=== PATIENT | female | born 1945 | race African-American/Black ===

== ENCOUNTER 2021-10-07 18:28 | Inpatient (IN) | payer OTHER, MEDICAID ==
[~2021-10-07] VITALS: Ht 167.6 cm; Wt 99.8 kg
[2021-10-07] MEDS ORDERED: methylPREDNISolone SOD SUCC 125 MG/2 ML VL IV ONE (19:45)
[2021-10-07 20:44] LABS: Albumin 3.4 g/dL (3.4-5.0); BUN/Creatinine Ratio 21.3; Calcium 8.9 mg/dL (8.5-10.1); Potassium 3.6 mmol/L (3.5-5.1)
[2021-10-07 20:50] LABS: Lactic Acid w/Reflex 2.1 mmol/L (0.4-2.0)
[2021-10-07 20:53] LABS: Bilirubin, Total 0.4 mg/dL (0.2-1.0); Total Protein 7.2 g/dL (6.4-8.2)
[2021-10-07] MEDS ORDERED: CHOLECALCIFEROL (VITD3) 2,000 UNIT CAP/TAB PO ONE (21:30)
[2021-10-07] MEDS ORDERED: AZITHROMYCIN 500MG/ 250ML 250 ML IV ONE (21:30)
[2021-10-07] MEDS ORDERED: ASCORBIC ACID 500 MG TAB PO ONE (21:30)
[2021-10-07] MEDS ORDERED: ZINC SULFATE 220mg CAP or TAB PO ONE (21:30)
[2021-10-07] MEDS ORDERED: ALBUTEROL SULF HFA 90MCG INH 200DOSE IN PRN (21:45)
[2021-10-07] MEDS ORDERED: ACETAMINOPHEN 500 MG TAB PO PRN (21:45)
[2021-10-07] MEDS ORDERED: ONDANSETRON HCL 4 MG/2 ML VIAL IV PRN (21:45)
[2021-10-07] MEDS ORDERED: HYDROcodone-ACET 5/325MG TAB PO PRN (21:45)
[2021-10-07] MEDS: SODIUM CHLORIDE 0.9% 1,000 ML IV SCH (21:45)
[2021-10-07] MEDS ORDERED: DOCUSATE SOD 100 MG CAP PO PRN (21:45)
[2021-10-07] MEDS: HEPARIN SODIUM (PORCINE) 5000 UNITS/ML 1ML VIAL SC SCH (22:00)
[2021-10-07] MEDS ORDERED: FAMOTIDINE (10MG/ML) 2ML VL IV SCH (22:00)
[2021-10-07] MEDS: BUDESONIDE (INHALATION) 180 MCG IH IN SCH (22:00)
[2021-10-07 22:03] LABS: Basophils # (auto) 0 10 ^3/uL (0-0.2); Basophils % (auto) 0.4 % (0.0-2.0); Eosinophils # (auto) 0.1 10 ^3/uL (0-0.8); Eosinophils % (auto) 1.2 % (0.0-7.0); Hematocrit 44.2 % (36.0-46.0); Hemoglobin 14.4 g/dL (12.2-16.2); Lymphocytes # (auto) 2.3 10 ^3/uL (0.4-5.4); Lymphocytes % (auto) 30.4 % (10.0-50.0); Mean Corpuscular Hemoglobin 24.4 pg (28.0-32.0); Mean Corpuscular Hgb Conc. 32.5 g/dL (32.0-36.0); Monocytes # (auto) 0.5 10 ^3/uL (0-1.3); Monocytes % (auto) 6.8 % (0.0-12.0); Neutrophils # (auto) 4.6 10 ^3/uL (1.6-8.6); Neutrophils % (auto) 61.2 % (37.0-80.0); Nucleated Red Blood Cells % 0.1 %; Red Cell Distribution Width 19.4 % (11.8-14.3); White Blood Cell 7.4 10^3/uL (4.4-10.8)
[2021-10-07] MEDS ORDERED: MORPHINE SULFATE INJECTION 2 MG/ML SYRG IV PRN (22:15)
[2021-10-07] MEDS ORDERED: NITROGLYCERIN 0.4 MG SL TAB SL PRN (22:15)
[2021-10-08 02:01] LABS: Urine Bacteria NONE SEEN /hpf (None Seen); Urine Blood Negative /uL (Negative); Urine Mucus FEW (None Seen); Urine Specific Gravity 1.026 (1.001-1.035); Urine WBC 6 /hpf (0 - 5)
[2021-10-08 05:53] LABS: Basophils # (auto) 0 10 ^3/uL (0-0.2); Eosinophils # (auto) 0.1 10 ^3/uL (0-0.8); Hemoglobin 12.9 g/dL (12.2-16.2); Mean Corpuscular Volume 74.1 fL (80.0-100.0); Neutrophils # (auto) 3.8 10 ^3/uL (1.6-8.6); White Blood Cell 6.2 10^3/uL (4.4-10.8)
[2021-10-08 05:57] LABS: Basophils % (auto) 0.2 % (0.0-2.0); Eosinophils % (auto) 0.9 % (0.0-7.0); Hematocrit 39.9 % (36.0-46.0); Lymphocytes # (auto) 1.7 10 ^3/uL (0.4-5.4); Lymphocytes % (auto) 28.2 % (10.0-50.0); Mean Corpuscular Hgb Conc. 32.4 g/dL (32.0-36.0); Monocytes # (auto) 0.6 10 ^3/uL (0-1.3); Neutrophils % (auto) 61.7 % (37.0-80.0); Nucleated Red Blood Cells % 0.1 %; Red Blood Cells 5.38 10^6/uL (4.0-5.20); Red Cell Distribution Width 19.2 % (11.8-14.3)
[2021-10-08] MEDS: HEPARIN SODIUM (PORCINE) 5000 UNITS/ML 1ML VIAL SC SCH ×3 (06:00→22:00)
[2021-10-08 06:15] LABS: Potassium 3.5 mmol/L (3.5-5.1)
[2021-10-08 06:55] LABS: Albumin 3.1 g/dL (3.4-5.0); BUN/Creatinine Ratio 20.6; Bilirubin, Total 0.4 mg/dL (0.2-1.0); Calcium 8.7 mg/dL (8.5-10.1); Total Protein 6.6 g/dL (6.4-8.2)
[2021-10-08] MEDS: cefTRIAXone 1GM/50ML D5W 50 ML IV SCH (09:00)
[2021-10-08] MEDS: BUDESONIDE (INHALATION) 180 MCG IH IN SCH ×2 (10:00→19:06)
[2021-10-08] MEDS: MULTIPLE VITAMIN TAB PO SCH (10:00)
[2021-10-08] MEDS: DexAMETHasone SOD PHOS 10MG/1ML VIAL INJ IV SCH (10:00)
[2021-10-08] MEDS: ASPirin 81 mg TAB PO SCH (10:00)
[2021-10-08] MEDS: AZITHROMYCIN 500MG/ 250ML 250 ML IV SCH (10:00)
[2021-10-08] MEDS: ASCORBIC ACID 1,000 MG TAB PO SCH (10:00)
[2021-10-08] MEDS: ZINC SULFATE 220mg CAP or TAB PO SCH (10:00)
[2021-10-08] MEDS: CHOLECALCIFEROL (VITD3) 2,000 UNIT CAP/TAB PO SCH (10:00)
[2021-10-08] MEDS: SODIUM CHLORIDE 0.9% 1,000 ML IV SCH (14:43)
[2021-10-09] MEDS ORDERED: ALBU108A5 INH (04:49)
[2021-10-09] MEDS ORDERED: BENA20TA14 PO (04:49)
[2021-10-09] MEDS ORDERED: FLUT100I INH (04:49)
[2021-10-09] MEDS ORDERED: AMLO-483 PO (04:49)
[2021-10-09 05:00] VITALS: BP 140/68
[2021-10-09] MEDS: HEPARIN SODIUM (PORCINE) 5000 UNITS/ML 1ML VIAL SC SCH (06:50)
[2021-10-09] MEDS: SODIUM CHLORIDE 0.9% 1,000 ML IV SCH (06:55)
[2021-10-09] MEDS: cefTRIAXone 1GM/50ML D5W 50 ML IV SCH (08:51)
[2021-10-09] MEDS: DexAMETHasone SOD PHOS 10MG/1ML VIAL INJ IV SCH (08:51)
[2021-10-09] MEDS: AZITHROMYCIN 500MG/ 250ML 250 ML IV SCH (08:51)
[2021-10-09] MEDS: ASCORBIC ACID 1,000 MG TAB PO SCH (08:52)
[2021-10-09] MEDS: ASPirin 81 mg TAB PO SCH (08:52)
[2021-10-09] MEDS: ZINC SULFATE 220mg CAP or TAB PO SCH (08:52)
[2021-10-09] MEDS: CHOLECALCIFEROL (VITD3) 2,000 UNIT CAP/TAB PO SCH (08:52)
[2021-10-09] MEDS: MULTIPLE VITAMIN TAB PO SCH (08:52)
[2021-10-09 09:00] VITALS: BP 144/69
[2021-10-09] MEDS ORDERED: ASCO10003 PO (12:10)
[2021-10-09] MEDS ORDERED: ZINC220C8 PO (12:10)
[2021-10-09] MEDS ORDERED: ASPI1CHW15 PO (12:10)
[2021-10-09] MEDS ORDERED: CHOL1CAP47 PO (12:10)
[2021-10-09] MEDS ORDERED: ALBUAER3 IN (12:10)
== END 2021-10-09 14:00 | disposition left against medical advice (07) | DRG 177 ==
LOC: EDBD 18:28 → ER 18:31 → TELE 22:12 → TELE-E-ADS 10-08 23:34
PROVIDERS: ADMIT Nurse Practitioner Family; ATTEND Internal Medicine
DX: U07.1 COVID-19 (principal); J96.00 Acute respiratory failure, unspecified whether with hypoxia or hypercapnia; J12.82 Pneumonia due to coronavirus disease 2019; I21.A1 Myocardial infarction type 2; J98.11 Atelectasis; N17.9 Acute kidney failure, unspecified; E66.01 Morbid (severe) obesity due to excess calories; F17.210 Nicotine dependence, cigarettes, uncomplicated; M19.90 Unspecified osteoarthritis, unspecified site; Z53.29 Procedure and treatment not carried out because of patient's decision for other reasons; I12.9 Hypertensive chronic kidney disease with stage 1 through stage 4 chronic kidney disease, or unspecified chronic kidney disease; N18.30 Chronic kidney disease, stage 3 unspecified; Z68.35 Body mass index [BMI] 35.0-35.9, adult; Z90.710 Acquired absence of both cervix and uterus
CPT/HCPCS: 36415; 71045; 80053; 81001; 82728; 83605; 83735; 83880; 84484; 85025; 85379; 87040; 87426; 93005; 93306; 93970; 96365; 96375; 99291; G0378; J0696; J1100; J3490

== ENCOUNTER 2022-05-01 19:40 | Inpatient (IN) | payer OTHER, MEDICAID ==
[~2022-05-01] VITALS: Ht 162.6 cm; Wt 99.9 kg
[~2022-05-01 19:40] MED LIST: ALBU108A5 INH; ALBUAER3 IN; AMLO-483 PO; ASCO10003 PO; ASPI1CHW15 PO; BENA20TA14 PO; CHOL1CAP47 PO; FLUT100I INH; ZINC220C8 PO
[2022-05-01 21:22] LABS: Basophils # (auto) 0.1 10 ^3/uL (0-0.2); Basophils % (auto) 0.4 % (0.0-2.0); Eosinophils # (auto) 0.1 10 ^3/uL (0-0.8); Hematocrit 42.4 % (36.0-46.0); Hemoglobin 13.1 g/dL (12.2-16.2); Lymphocytes # (auto) 2.4 10 ^3/uL (0.4-5.4); Lymphocytes % (auto) 20.1 % (10.0-50.0); Mean Corpuscular Hemoglobin 23.7 pg (28.0-32.0); Mean Corpuscular Hgb Conc. 30.8 g/dL (32.0-36.0); Monocytes # (auto) 0.7 10 ^3/uL (0-1.3); Monocytes % (auto) 5.8 % (0.0-12.0); Neutrophils # (auto) 8.6 10 ^3/uL (1.6-8.6); Neutrophils % (auto) 72.7 % (37.0-80.0); Red Cell Distribution Width 19.2 % (11.8-14.3); White Blood Cell 11.8 10^3/uL (4.4-10.8)
[2022-05-01 21:39] LABS: Albumin 3.4 g/dL (3.4-5.0); BUN/Creatinine Ratio 12.1; Calcium 9.6 mg/dL (8.5-10.1); Magnesium 2.3 mg/dL (1.6-2.6); Potassium 3.5 mmol/L (3.5-5.1)
[2022-05-01 21:42] LABS: Bilirubin, Total 0.4 mg/dL (0.2-1.0); Total Protein 7.5 g/dL (6.4-8.2)
[2022-05-01 22:00] LABS: INR 1.01 (0.9-1.15); Partial Thromboplastin Time 25.3 sec (24.6-33.4)
[2022-05-01] MEDS ORDERED: MAGNESIUM SULFATE 1GM/100ML 100 ML IV ONE (22:45)
[2022-05-01] MEDS ORDERED: HYDROcodone-ACET 5/325MG TAB PO ONE (22:45)
[2022-05-01] MEDS ORDERED: METOCLOPRAMIDE HCL 5MG/ml INJ 2ml VIAL IV ONE (22:45)
[2022-05-01] MEDS ORDERED: ASPirin 325 MG TAB PO ONE (22:45)
[2022-05-02] MEDS ORDERED: MORPHINE SULFATE INJ 2 MG/ml SYRG IV ONE (03:15)
[2022-05-02] MEDS ORDERED: ACETAMINOPHEN 325 MG TAB PO PRN (10:00)
[2022-05-02] MEDS: ENOXAPARIN SOD 40 MG/0.4 ML SYRINGE SC SCH (10:00)
[2022-05-02] MEDS ORDERED: HYDROcodone-ACET 5/325MG TAB PO PRN (10:00)
[2022-05-02] MEDS ORDERED: ONDANSETRON HCL 4 MG/2 ML VIAL IV PRN (10:00)
[2022-05-02] MEDS ORDERED: MORPHINE SULFATE INJ 2 MG/ml SYRG IV PRN ×2 (10:00)
[2022-05-02] MEDS ORDERED: NITROGLYCERIN 0.4 MG SL TAB SL PRN (10:00)
[2022-05-02 14:30] VITALS: BP 156/92
[2022-05-02 18:00] VITALS: BP 183/90
[2022-05-02 18:25] VITALS: BP 157/98
[2022-05-02] MEDS: hydrALAZINE HCL 20 MG/ML VL IV PRN (22:10)
[2022-05-02] MEDS ORDERED: LORazepam 2MG/ML-1ML VIAL IV PRN (22:45)
[2022-05-02] MEDS: ATORVASTATIN 20 MG TAB PO SCH (23:08)
[2022-05-02 23:59] LABS: Cholesterol 112 mg/dL (< 200); Triglycerides 97 mg/dL (< 150)
[2022-05-03 00:02] LABS: HDL Cholesterol 46 mg/dL (40-59); LDL Cholesterol 64 mg/dL (< 100)
[2022-05-03 00:07] LABS: Folate (Folic Acid) 9.87 ng/mL (5.38-24)
[2022-05-03 05:00] VITALS: BP 169/54
[2022-05-03] MEDS: METOCLOPRAMIDE HCL 10 MG TAB PO SCH ×3 (05:47→21:06)
[2022-05-03 05:49] LABS: Basophils # (auto) 0 10 ^3/uL (0-0.2); Eosinophils # (auto) 0.1 10 ^3/uL (0-0.8); Eosinophils % (auto) 1.5 % (0.0-7.0); Hemoglobin 12.4 g/dL (12.2-16.2); Monocytes # (auto) 0.7 10 ^3/uL (0-1.3); Neutrophils # (auto) 6.8 10 ^3/uL (1.6-8.6)
[2022-05-03 05:51] LABS: Basophils % (auto) 0.4 % (0.0-2.0); Hematocrit 38.8 % (36.0-46.0); Lymphocytes # (auto) 1.9 10 ^3/uL (0.4-5.4); Lymphocytes % (auto) 20.2 % (10.0-50.0); Mean Corpuscular Hemoglobin 24.1 pg (28.0-32.0); Mean Corpuscular Hgb Conc. 31.9 g/dL (32.0-36.0); Mean Corpuscular Volume 75.3 fL (80.0-100.0); Neutrophils % (auto) 70.9 % (37.0-80.0); Red Blood Cells 5.15 10^6/uL (4.0-5.20); Red Cell Distribution Width 18.9 % (11.8-14.3); White Blood Cell 9.6 10^3/uL (4.4-10.8)
[2022-05-03 05:59] LABS: Albumin 3.1 g/dL (3.4-5.0); BUN/Creatinine Ratio 14.4; Calcium 9.3 mg/dL (8.5-10.1); Potassium 3.2 mmol/L (3.5-5.1)
[2022-05-03 06:01] LABS: Bilirubin, Total 0.5 mg/dL (0.2-1.0); Total Protein 6.6 g/dL (6.4-8.2)
[2022-05-03] MEDS: hydrALAZINE HCL 20 MG/ML VL IV PRN (06:21)
[2022-05-03] MEDS ORDERED: POTASSIUM EFFERVESENT TAB 25 MEQ PO ONE (07:15)
[2022-05-03] MEDS: ENOXAPARIN SOD 40 MG/0.4 ML SYRINGE SC SCH (08:03)
[2022-05-03 09:00] VITALS: BP 121/69
[2022-05-03] MEDS: DexAMETHasone INJECTION 10 MG in D5W 5% 50 ML IV SCH (10:00)
[2022-05-03] MEDS: ASCORBIC ACID 1,000 MG TAB PO SCH (10:16)
[2022-05-03] MEDS: CHOLECALCIFEROL (VITD3) 2,000 UNIT CAP/TAB PO SCH (10:18)
[2022-05-03] MEDS: ZINC SULFATE 220mg CAP or TAB PO SCH (10:18)
[2022-05-03] MEDS: amLODIPine BESYLATE 5 MG TAB PO SCH (10:18)
[2022-05-03] MEDS: ASPirin 81 mg TAB PO SCH (10:18)
[2022-05-03] MEDS: BENAZEPRIL HCL 10 MG TAB PO SCH (10:19)
[2022-05-03 10:20] VITALS: BP 121/69
[2022-05-03 13:00] VITALS: BP 129/54
[2022-05-03 17:00] VITALS: BP 141/51
[2022-05-03] MEDS: ATORVASTATIN 20 MG TAB PO SCH (21:06)
[2022-05-03 22:00] VITALS: BP 145/48
[2022-05-04 05:00] VITALS: BP 141/46
[2022-05-04] MEDS: METOCLOPRAMIDE HCL 10 MG TAB PO SCH ×2 (05:25→15:20)
[2022-05-04 09:00] VITALS: BP 129/57
[2022-05-04] MEDS: DexAMETHasone INJECTION 10 MG in D5W 5% 50 ML IV SCH (10:45)
[2022-05-04] MEDS: ASPirin 81 mg TAB PO SCH (10:45)
[2022-05-04] MEDS: CHOLECALCIFEROL (VITD3) 2,000 UNIT CAP/TAB PO SCH (10:45)
[2022-05-04] MEDS: ZINC SULFATE 220mg CAP or TAB PO SCH (10:45)
[2022-05-04] MEDS: ASCORBIC ACID 1,000 MG TAB PO SCH (10:46)
[2022-05-04] MEDS: amLODIPine BESYLATE 5 MG TAB PO SCH (10:46)
[2022-05-04] MEDS: ENOXAPARIN SOD 40 MG/0.4 ML SYRINGE SC SCH (10:47)
[2022-05-04] MEDS: BENAZEPRIL HCL 10 MG TAB PO SCH (10:47)
[2022-05-04 13:00] VITALS: BP 114/63
[2022-05-04] MEDS ORDERED: ALBUAER3 IN (16:03)
[2022-05-04 17:00] VITALS: BP 175/78
[2022-05-04 18:23] VITALS: BP 142/71
== END 2022-05-04 19:27 | disposition home or self-care (01) | DRG 102 ==
LOC: ER 19:40 → TELE 05-02 09:57 → TELE-CENTR 05-02 14:56
PROVIDERS: ADMIT Internal Medicine; ATTEND Internal Medicine
DX: R51.9 Headache, unspecified (principal); I67.83 Posterior reversible encephalopathy syndrome; F17.210 Nicotine dependence, cigarettes, uncomplicated; H53.462 Homonymous bilateral field defects, left side; I10 Essential (primary) hypertension; J44.9 Chronic obstructive pulmonary disease, unspecified; Z20.822 Contact with and (suspected) exposure to COVID-19; M19.90 Unspecified osteoarthritis, unspecified site; Z59.00 Homelessness unspecified; Z79.82 Long term (current) use of aspirin; Z86.73 Personal history of transient ischemic attack (TIA), and cerebral infarction without residual deficits; Z79.899 Other long term (current) drug therapy; Z82.49 Family history of ischemic heart disease and other diseases of the circulatory system; Z90.710 Acquired absence of both cervix and uterus
CPT/HCPCS: 36415; 70450; 71045; 80053; 80061; 82607; 82746; 83735; 83880; 84443; 84484; 85025; 85610; 85730; 93005; 93306; 95819; 96365; 96375; 99291; G0378; J1100; J7060